=== PATIENT | female | born 1975 | race Caucasian/White ===

== ENCOUNTER 2020-02-05 19:16 | Observation (INO) ==
[2020-02-05 20:28] LABS: Basophils % 0.2 % (0.0-0.8); Eosinophils # 0.1 10*3/uL (0.0-0.87); Eosinophils % 1.6 % (0.00-10.9); Hematocrit 35.5 VOL% (35.7-47.0); Hemoglobin 11.7 GM/DL (12.0-16.0); Immature Granulocytes % 0.4 %; Immature Granulocytes Absolute 0.03 #; Lymphocytes # 2.4 10*3/uL (1.4-4.0); Lymphocytes % 29.8 % (21.3-54.2); Mean Corpuscular Volume 82.8 FL (87-102); Mean Platelet Volume 9.2 FL (9.6-12.0); Monocytes % 6.7 % (1.7-12.7); Neutrophils % 61.3 % (38.7-73.9); Platelet Count 202 T/CUMM (130-400); Red Blood Count 4.29 MC/CUMM (3.8-5.5); Red Cell Distribution Width 15.7 % (9.3-17.3)
[2020-02-05] MEDS ORDERED: ONDANSETRON 4 MG/2 ML VIAL IV STA (20:54)
[2020-02-05 21:04] LABS: Alanine Aminotransferase 19 U/L (13-56); Albumin 3.3 G/DL (3.4-5.0); Alkaline Phosphatase 67 U/L (45-117); Aspartate Amino Transferase 19 U/L (0-37); Blood Urea Nitrogen 7 MG/DL (7-18); Calcium 8.5 MG/DL (8.5-10.1); Estimated Glom Filtration Rate 109 ML/MIN; Glucose 79 MG/DL (74-106); Osmolality,Calculated 275.4 MOS/KG (273-304); Total Protein 7.5 G/DL (6.4-8.3)
[2020-02-05 21:06] LABS: Salicylate 3.8 MG/DL (2.8-20)
[2020-02-05 21:08] LABS: Acetaminophen < 2.0 UG/ML (10-30)
[2020-02-05 21:23] LABS: Troponin I < 0.015 NG/ML (0.00-0.045)
[2020-02-05 21:28] LABS: ABG Base Excess 1.2 MMOL/L (-2.5-2.5); ABG HCO3 25.5 MMOL/L (20-26); ABG Oxygen Saturation 97.9 % (95-100); ABG PCO2 35.8 MM HG (35-48); ABG PO2 96.6 MM HG (80-95)
[2020-02-05 22:23] LABS: Bacteria,Urine Occasional /HPF (Few); Bilirubin,Urine Negative (Negative); Blood, Urine Negative (Negative); Glucose,Urine (UA) Negative (Negative); Ketones,Urine 5 mg/dL (Negative); Mucus,Urine Occasional /LPF (Occasional); Nitrite,Urine Negative (Negative); Protein,Urine Negative; RBC,Urine 1 /HPF (0-4); Squamous Epithelial Cell,Urine Occasional /HPF (0-10); Urine Appearance CLEAR (Clear); Urine Color Yellow (Yellow); Urine Specific Gravity 1.018 (1.001-1.035)
[2020-02-05 22:44] LABS: Barbiturates Screen,Urine Negative (Negative); Benzodiazepines Screen,Urine Negative (Negative); Cannabinoid Screen,Urine Negative (Negative); Opiate Screen,Urine Negative (Negative); Phencyclidine Screen,Urine Negative (Negative)
[2020-02-05] MEDS ORDERED: NICOTINE 21 MG/24 HR PATCH TRANSDERM PRN (23:59)
[2020-02-06] MEDS ORDERED: ONDANSETRON 4 MG/2 ML VIAL IV PRN (00:27)
[2020-02-06] MEDS ORDERED: GLUCAGON 1 MG VIAL IM PRN (00:27)
[2020-02-06] MEDS ORDERED: DEXTROSE 50% 25 GM/50 ML VIAL IV PRN (00:27)
[2020-02-06] MEDS ORDERED: DOCUSATE SODIUM 100 MG CAPSULE PO PRN (00:27)
[2020-02-06] MEDS ORDERED: ACETAMINOPHEN 325 MG TABLET PO PRN (00:27)
[2020-02-06] MEDS ORDERED: ENOXAPARIN 40 MG/0.4 ML SYRINGE SUBCUT SCH (00:30)
[2020-02-06] MEDS ORDERED: DEXTROSE 50% 25 GM/50 ML SYRINGE IV PRN (00:44)
[2020-02-06] MEDS: SODIUM CHLORIDE 0.9% 1,000 ML IV SCH ×3 (01:56→18:15)
[2020-02-06 07:20] LABS: Basophils % 0.2 % (0.0-0.8); Eosinophils # 0.2 10*3/uL (0.0-0.87); Eosinophils % 1.4 % (0.00-10.9); Hematocrit 35.2 VOL% (35.7-47.0); Hemoglobin 11.8 GM/DL (12.0-16.0); Immature Granulocytes % 0.3 %; Immature Granulocytes Absolute 0.03 #; Lymphocytes # 2.4 10*3/uL (1.4-4.0); Lymphocytes % 21.2 % (21.3-54.2); Mean Corpuscular HGB Conc 33.5 GM/DL (32-36); Mean Corpuscular Volume 81.3 FL (87-102); Mean Platelet Volume 9.2 FL (9.6-12.0); Monocytes % 5.9 % (1.7-12.7); Platelet Count 212 T/CUMM (130-400); Red Blood Count 4.33 MC/CUMM (3.8-5.5); Red Cell Distribution Width 15.5 % (9.3-17.3); White Blood Count 11.2 T/CUMM (4-12)
[2020-02-06 08:13] LABS: Alanine Aminotransferase 19 U/L (13-56); Albumin 3.3 G/DL (3.4-5.0); Alkaline Phosphatase 67 U/L (45-117); Aspartate Amino Transferase 15 U/L (0-37); Bilirubin,Total < 0.39 MG/DL (0.2-1.0); Blood Urea Nitrogen 7 MG/DL (7-18); Estimated Glom Filtration Rate 115 ML/MIN; Glucose 96 MG/DL (74-106); Thyroid Stimulating Hormone 0.854 uIU/ml (0.358-3.74); Total Protein 7.3 G/DL (6.4-8.3)
[2020-02-06] MEDS ORDERED: chlorproMAZINE 25 MG TABLET PO SCH (09:30)
[2020-02-06] MEDS: INSULIN LISPRO 100 UNIT/ML SUBCUT SCH ×3 (10:06→18:15)
[2020-02-06] MEDS ORDERED: LORazepam 2 MG/1 ML VIAL IV PRN (11:33)
[2020-02-06 16:57] VITALS: BP 147/89
[2020-02-06] MEDS ORDERED: BENZTROPINE 1 MG TABLET PO SCH (21:00)
[2020-02-06] MEDS ORDERED: carBAMazepine 200 MG TABLET PO SCH (21:00)
[2020-02-07] MEDS: INSULIN LISPRO 100 UNIT/ML SUBCUT SCH (01:06)
[2020-02-07] MEDS ORDERED: LEVOTHYROXINE 88 MCG TABLET PO SCH (09:00)
== END 2020-02-07 01:20 ==
LOC: N.EDINP 19:16 → N.ED 19:16 → N.EDINP 02-06 01:36 → N.TELES 02-06 01:37
PROVIDERS: ADMIT Family Medicine; ATTEND Family Medicine